=== PATIENT | female | born 1935 | race Caucasian/White ===

== ENCOUNTER 2022-09-16 17:31 | Emergency (ER) | payer OTHER ==
[~2022-09-16] VITALS: Ht 152.4 cm; Wt 56.0 kg
[2022-09-16] MEDS ORDERED: HYDR-4902 PO (22:22)
[2022-09-16 23:34] VITALS: BP 145/88
== END 2022-09-16 23:36 | disposition home or self-care (01) ==
LOC: ER 17:31
DX: S32.592A Other specified fracture of left pubis, initial encounter for closed fracture (principal); S00.03XA Contusion of scalp, initial encounter; W18.39XA Other fall on same level, initial encounter; Y93.89 Activity, other specified; Y92.89 Other specified places as the place of occurrence of the external cause; Y99.8 Other external cause status
CPT/HCPCS: 70450; 72125; 74176